=== PATIENT | female | born 1970 | race Caucasian/White ===

== ENCOUNTER 2021-02-16 17:45 | Emergency (ER) | payer BC, OTHER ==
[2021-02-16 18:38] LABS: Urine Blood Negative (Negative); Urine Glucose Negative (Negative); Urine Protein Negative (Negative); Urine Specific Gravity 1.025 (1.005-1.030)
[2021-02-16] MEDS ORDERED: IBUPROFEN 400 MG TAB ONE (18:55)
--- NOTE | 2021-02-16 19:35 | ER ---
Nurse's Notes [facility] Name: Apolonia Ramos Age: 50 yrs Sex: Female : 1970 Arrival Date: 02/16/2021 Time: 17:47 Bed 20 Private MD: Diagnosis: Pain in right hip Presentation: 02/16 17:53 Chief complaint: Patient states: she stumbled and fell a week ago at her home, and has ap3 had the hip pain since. Patient states she thought the pain would improve, but it has gotten worse and even has kept her up at night. Coronavirus screen: Vaccine status: Patient reports receiving the 2nd dose of the covid vaccine. At this time, the client does not indicate any symptoms associated with coronavirus-19. Ebola Screen: No symptoms or risks identified at this time. Initial Sepsis Screen: Does the patient meet any 2 criteria? No. Patient's initial sepsis screen is negative. Does the patient have a suspected source of infection? No. Patient's initial sepsis screen is negative. Risk Assessment: Do you want to hurt yourself or someone else? Patient reports no desire to harm self or others. Onset of symptoms was February 09, 2021. 17:53 Method Of Arrival: Ambulatory ap3 17:53 Acuity: BRYANNA 4 ap3 Triage Assessment: 17:57 General: Appears uncomfortable, Behavior is calm, cooperative, appropriate for age. ap3 Pain: Complains of pain in right hip Pain radiates to right leg Pain currently is 10 out of 10 on a pain scale. Quality of pain is described as sharp, Pain began one week ago on 02/09/2021 Alleviated by rest, Aggravated by exercise, increased activity, weight bearing. Neuro: Level of Consciousness is awake, alert, obeys commands, Oriented to person, place, time, situation, Appropriate for age Moves all extremities. Gait is unsteady, Speech is normal. Cardiovascular: Patient's skin is warm and dry. Respiratory: Airway is patent. Musculoskeletal: Reports pain in right hip. Injury Description: fall. 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 - Social history:: Smoking status: Patient reports the use of cigarette tobacco products, smokes one-half pack cigarettes per day. Screenin:56 Abuse screen: Denies threats or abuse. Nutritional screening: No deficits noted. ap3 Tuberculosis screening: No symptoms or risk factors identified. Assessment: 18:36 Musculoskeletal: Reports pain in right hip Rt hip pain since she got out of ex tc5 truck and fell. rates pain 10/10. Vital Signs: 17:56 BP 130 / 85; Pulse 67; Resp 17; Temp 98.8(TE); Pulse Ox 100% on R/A; Weight 72.57 kg; ap3 Height 6 ft. 2 in. (187.96 cm); Pain 10/10; 19:50 BP 124 / 80; Pulse 70; Resp 18; Pain 0/10; wg 17:56 Body Mass Index 20.54 (72.57 kg, 187.96 cm) ap3 ED Course: 17:47 Patient arrived in ED. mr 17:55 Triage completed. ap3 17:56 Arm band placed on right wrist. ap3 18:02 Wyatt Brito PA is PHCP. cp 18:02 Wyatt Wesley MD is Attending Physician. cp 18:16 Chayo Carbajal, PEARL is Primary Nurse. tc5 18:59 XRAY Hip RIGHT 2 view In Process Unspecified. EDMS 19:34 Castillo Vera MD is Referral Physician. cp Administered Medications: 18:35 Drug: Ibuprofen 800 mg Route: PO; tc5 19:40 Drug: Lidoderm Patch 5 % (700 mg/patch) 1 patches Route: Topical; Site: right thigh; em 20:09 Follow up: Response: No adverse reaction wg Outcome: 19:34 Discharge ordered by . cp 20:08 Discharged to home ambulatory. wg 20:08 Condition: stable 20:08 Discharge instructions given to Instructed on Demonstrated understanding of Prescriptions given X 2. 20:10 Patient left the ED. wg Signatures: Dispatcher [employer] BRYNNC Narcisa Issa mr Prince Girard, RN RN em Wyatt Brito PA PA cp Prokisch, Amanda, RN RN ap3 Shan Bhatti, RN wg Raven, Chayo, RN RN tc5
--- NOTE | 2021-02-16 19:35 | EDPHYS ---
Physician Documentation [facility] Name: Apolonia Ramos Age: 50 yrs Sex: Female : 1970 Arrival Date: 02/16/2021 Time: 17:47 Bed 20 Private MD: ED Physician Wyatt Wesley HPI: 02/16 18:15 This 50 yrs old Female presents to ER via Ambulatory with complaints of Hip cp Pain. 18:15 The patient or guardian reports an injury, pain. that occurred on a street or driveway, cp sustained from a fall, while walking, There is no obvious deformity, The patient is able to self ambulate. The patient is able to bear their full body weight. There is no radiation of the patient's discomfort. The complaints affect the right hip. Onset: The symptoms/episode began/occurred over 1 week ago. Associated signs and symptoms: Pertinent negatives: abdominal pain, chest pain, dysuria, fever, weakness, numbness. Severity of symptoms: in the emergency department the symptoms are unchanged, despite home interventions. 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 - Social history:: Smoking status: Patient reports the use of cigarette tobacco products, smokes one-half pack cigarettes per day. ROS: 18:20 MS/extremity: Positive for pain, tenderness, of the right hip, Negative for decreased cp range of motion, deformity, paresthesias, tenderness. 18:20 Eyes: Negative for injury, pain, redness, and discharge. cp 18:20 Constitutional: Negative for body aches, chills, fever, poor PO intake. 18:20 Cardiovascular: Negative for chest pain. 18:20 Respiratory: Negative for cough, shortness of breath, wheezing. 18:20 Abdomen/GI: Negative for abdominal pain, nausea, vomiting, and diarrhea. 18:20 Back: Negative for pain at rest, pain with movement. 18:20 Neuro: Negative for altered mental status, numbness, weakness. 18:20 All other systems are negative. Exam: 18:25 Constitutional: The patient appears in no acute distress, alert, awake, comfortable, cp non-toxic, well developed, well nourished. 18:25 Head/Face: Normocephalic, atraumatic. cp 18:25 Chest/axilla: Inspection: normal. 18:25 Cardiovascular: Rate: normal. 18:25 Respiratory: the patient does not display signs of respiratory distress, Respirations: normal, no use of accessory muscles, no retractions, labored breathing, is not present, Breath sounds: are clear throughout, no decreased breath sounds. 18:25 Abdomen/GI: Inspection: abdomen appears normal, Palpation: abdomen is soft and non-tender, in all quadrants. 18:25 Back: pain, is absent, ROM is normal, vertebral tenderness, is not appreciated. 18:25 Musculoskeletal/extremity: Extremities: grossly normal except: noted in the right hip: ecchymosis, tenderness, ROM: limited passive range of motion due to pain, in the right hip, Perfusion: the extremity is normally perfused throughout, the right leg Sensation intact. DVT Exam: No signs of deep vein thrombosis. 18:25 Skin: cellulitis, is not appreciated, no rash present. Vital Signs: 17:56 BP 130 / 85; Pulse 67; Resp 17; Temp 98.8(TE); Pulse Ox 100% on R/A; Weight 72.57 kg; ap3 Height 6 ft. 2 in. (187.96 cm); Pain 10/10; 19:50 BP 124 / 80; Pulse 70; Resp 18; Pain 0/10; wg 17:56 Body Mass Index 20.54 (72.57 kg, 187.96 cm) ap3 MDM: 18:02 Patient medically screened. andrew 19:33 Data reviewed: vital signs, nurses notes, radiologic studies, plain films. Test cp interpretation: by ED physician or midlevel provider: xrays of right hip negative for fracture. 02/16 18:38 Order name: Urine Dipstick-Ancillary; Complete Time: 18:41 EDMS 02/16 18:41 Interpretation: Reviewed. cp 02/16 18:09 Order name: XRAY Hip RIGHT 2 view cp 02/16 18:09 Order name: Urine Dipstick-Ancillary (obtain specimen) cp 02/16 18:09 Order name: Urine Test (obtain specimen) cp Administered Medications: 18:35 Drug: Ibuprofen 800 mg Route: PO; tc5 19:40 Drug: Lidoderm Patch 5 % (700 mg/patch) 1 patches Route: Topical; Site: right thigh; em 20:09 Follow up: Response: No adverse reaction Disposition: 02/17 13:04 Co-signature as Attending Physician, Wyatt Wesley MD I agree with the assessment and andrew plan of care. Disposition Summary: 02/16/21 19:34 Discharge Ordered Location: Home cp Problem: new cp Symptoms: have improved cp Condition: Stable cp Diagnosis - Pain in right hip cp Followup: cp - With: Castillo Vera MD - When: 1 week - Reason: Recheck today's complaints Discharge Instructions: - Discharge Summary Sheet cp - Hip Pain cp Forms: - Medication Reconciliation Form cp - Thank You Letter cp - Antibiotic Education cp - Prescription Opioid Use cp Prescriptions: - Lidoderm 5 % Topical adhesive patch,medicated - apply 1 patch by TOPICAL route once daily; 1 box; Refills: 0, Product Selection cp Permitted - Cyclobenzaprine 10 mg Oral Tablet - take 1 tablet by ORAL route every 8 hours As needed; 20 tablet; Refills: 0, cp Product Selection Permitted - Diclofenac Sodium 75 mg Oral tablet,delayed release (DR/EC) - take 1 tablet by ORAL route 2 times per day; 20 tablet; Refills: 0, Product cp Selection Permitted Signatures: Dispatcher [employer] Wyatt Plummer MD MD cha Munoz, Edgar RN RN Wyatt Worthy PA PA Sonia Smallwood RN RN ap3 Chayo Carbajal RN RN tc5 Shan Bhatti RN wg
--- NOTE | 2021-02-16 19:51 | RAD REPORT ---
EXAM DESCRIPTION: RAD - Hip Right 2 View - 02/16/2021 7:00 pm CLINICAL HISTORY: PAIN COMPARISON: No comparisons FINDINGS: No acute fracture, dislocation or AVN pattern observed. Mild osteoarthritis is present.
[2021-02-16] MEDS ORDERED: LIDOCAINE 4% PATCH ONE (20:04)
[2021-02-16 20:19] VITALS: TEMP 98.8; O2SAT 100
[2021-02-16 20:21] VITALS: BP 124/80
== END 2021-02-16 20:10 | disposition home or self-care (01) ==
LOC: ER 17:45
DX: M25.551 Pain in right hip (principal); F17.210 Nicotine dependence, cigarettes, uncomplicated; Z88.0 Allergy status to penicillin; Z88.1 Allergy status to other antibiotic agents
CPT/HCPCS: 81003; 99283

== ENCOUNTER 2022-01-12 10:36 | Emergency (ER) | payer BC, OTHER ==
--- NOTE | 2022-01-12 11:53 | ER ---
Nurse's Notes [facility] Name: Apolonia Ramos Age: 51 yrs Sex: Female : 1970 Arrival Date: 01/12/2022 Time: 10:38 Bed 12 Private MD: Diagnosis: Other otitis externa, right ear Presentation: 01/12 11:38 Chief complaint: Patient states: I think I have swimmers ear. My right ear has been bm7 hurting so bad that it kept me up all night. Coronavirus screen: At this time, the client does not indicate any symptoms associated with coronavirus-19. Ebola Screen: No symptoms or risks identified at this time. Initial Sepsis Screen: Does the patient meet any 2 criteria? No. Patient's initial sepsis screen is negative. Does the patient have a suspected source of infection? No. Patient's initial sepsis screen is negative. Risk Assessment: Do you want to hurt yourself or someone else? Patient reports no desire to harm self or others. Onset of symptoms was January 11, 2022. 11:38 Method Of Arrival: Ambulatory 7 11:38 Acuity: BRYANNA 5 bm7 Triage Assessment: 11:40 General: Appears in no apparent distress. comfortable, Behavior is calm, cooperative, bm7 appropriate for age. Pain: Complains of pain in right ear Pain does not radiate. EENT: Ear canal clear on right ear Reports pain in right ear. Neuro: No deficits noted. Cardiovascular: No deficits noted. Respiratory: No deficits noted. GI: No deficits noted. No signs and/or symptoms were reported involving the gastrointestinal system. : No deficits noted. No signs and/or symptoms were reported regarding the genitourinary system. Derm: No deficits noted. No signs and/or symptoms reported regarding the dermatologic system. Musculoskeletal: No deficits noted. No signs and/or symptoms reported regarding the musculoskeletal system. 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 - Social history:: Smoking status: Patient reports the use of cigarette tobacco products, smokes one-half pack cigarettes per day. Screenin:03 Abuse screen: Denies threats or abuse. Denies injuries from another. Nutritional ss screening: No deficits noted. Tuberculosis screening: Never had TB. Fall Risk None identified. Assessment: 12:03 General: Appears in no apparent distress. comfortable, Behavior is calm, cooperative, ss Denies fever. Pain: Complains of pain in right ear canal and right ear Pain currently is 10 out of 10 on a pain scale. Quality of pain is described as tender, Is continuous. Neuro: Level of Consciousness is awake, alert, obeys commands, Oriented to person, place, time, situation. Cardiovascular: Capillary refill < 3 seconds is brisk in bilateral fingers. Respiratory: Airway is patent Respiratory effort is even, unlabored, Respiratory pattern is regular, symmetrical. Derm: Skin is intact, is healthy with good turgor, Skin is dry, Skin is pink, warm \T\ dry. normal. Musculoskeletal: Circulation, motion, and sensation intact. Range of motion: intact in all extremities. Vital Signs: 11:38 BP 107 / 68; Pulse 62; Resp 16; Temp 97.0(TE); Pulse Ox 100% on R/A; Weight 63.5 kg bm7 (R); Height 5 ft. 2 in. (157.48 cm); Pain 10/10; 11:38 Body Mass Index 25.61 (63.50 kg, 157.48 cm) bm7 ED Course: 10:38 Patient arrived in ED. mr 11:40 Triage completed. bm7 11:40 Arm band placed on right wrist. bm7 11:43 Amador Lugo is [facility]. jl9 11:43 Wyatt Wesley MD is Attending Physician. jl9 12:03 Teressa Perez, PEARL is Primary Nurse. ss 12:03 Patient has correct armband on for positive identification. Bed in low position. ss 12:03 No provider procedures requiring assistance completed. Patient did not have IV access ss during this emergency room visit. Administered Medications: No medications were administered Medication: 12:03 VIS not applicable for this client. ss Outcome: 11:53 Discharge ordered by MD. ojeda 12:03 Discharged to home ambulatory. 12:03 Condition: good 12:03 Discharge instructions given to patient, Instructed on discharge instructions, follow up and referral plans. medication usage, Demonstrated understanding of instructions, follow-up care, medications, Prescriptions given X 1. 12:04 Patient left the ED. Signatures: Narcisa Issa Shelby, RN RN Brianda Mendez RN RN bm7 Linares, John jl9
--- NOTE | 2022-01-12 11:53 | EDPHYS ---
Physician Documentation [facility] Name: Apolonia Ramos Age: 51 yrs Sex: Female : 1970 Arrival Date: 01/12/2022 Time: 10:38 Bed 12 Private MD: Wyatt Monaco HPI: 01/12 11:50 This 51 yrs old Female presents to ER via Ambulatory with complaints of right jl9 ear pain [place] the [place] 2 [place]. . 11:50 The patient presents with pain, tenderness. The complaints affect the right ear. Onset: jl9 The symptoms/episode began/occurred yesterday. Modifying factors: The symptoms are alleviated by nothing, the symptoms are aggravated by nothing. Associated signs and symptoms: The patient has no apparent associated signs or symptoms. Severity of symptoms: Pain is currently a 3 / 10. 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 - Social history:: Smoking status: Patient reports the use of cigarette tobacco products, smokes one-half pack cigarettes per day. ROS: 11:51 Constitutional: Negative for fever, chills, and weight loss, Eyes: Negative for injury, jl9 pain, redness, and discharge. 11:51 Neck: Negative for injury, pain, and swelling, Cardiovascular: Negative for chest pain, palpitations, and edema, Respiratory: Negative for shortness of breath, cough, wheezing, and pleuritic chest pain, Abdomen/GI: Negative for abdominal pain, nausea, vomiting, diarrhea, and constipation, Back: Negative for injury and pain, MS/Extremity: Negative for injury and deformity, Skin: Negative for injury, rash, and discoloration, Neuro: Negative for headache, weakness, numbness, tingling, and seizure, Psych: Negative for depression, anxiety, suicide ideation, homicidal ideation, and hallucinations, Allergy/Immunology: Negative for hives, rash, and allergies, Endocrine: Negative for neck swelling, polydipsia, polyuria, polyphagia, and marked weight changes, Hematologic/Lymphatic: Negative for swollen nodes, abnormal bleeding, and unusual bruising. 11:51 ENT: Positive for ear pain. Exam: 11:51 Constitutional: This is a well developed, well nourished patient who is awake, alert, jl9 and in no acute distress. Head/Face: Normocephalic, atraumatic. Eyes: Pupils equal round and reactive to light, extra-ocular motions intact. Lids and lashes normal. Conjunctiva and sclera are non-icteric and not injected. Cornea within normal limits. Periorbital areas with no swelling, redness, or edema. 11:51 Neck: Trachea midline, no thyromegaly or masses palpated, and no cervical lymphadenopathy. Supple, full range of motion without nuchal rigidity, or vertebral point tenderness. No Meningismus. Chest/axilla: Normal chest wall appearance and motion. Nontender with no deformity. No lesions are appreciated. Cardiovascular: Regular rate and rhythm with a normal S1 and S2. No gallops, murmurs, or rubs. Normal PMI, no JVD. No pulse deficits. Respiratory: Lungs have equal breath sounds bilaterally, clear to auscultation and percussion. No rales, rhonchi or wheezes noted. No increased work of breathing, no retractions or nasal flaring. Abdomen/GI: Soft, non-tender, with normal bowel sounds. No distension or tympany. No guarding or rebound. No evidence of tenderness throughout. Back: No spinal tenderness. No costovertebral tenderness. Full range of motion. Skin: Warm, dry with normal turgor. Normal color with no rashes, no lesions, and no evidence of cellulitis. MS/ Extremity: Pulses equal, no cyanosis. Neurovascular intact. Full, normal range of motion. Neuro: Awake and alert, GCS 15, oriented to person, place, time, and situation. Cranial nerves II-XII grossly intact. Motor strength 5/5 in all extremities. Sensory grossly intact. Cerebellar exam normal. Normal gait. Psych: Awake, alert, with orientation to person, place and time. Behavior, mood, and affect are within normal limits. 11:51 ENT: External ear(s): erythema, of the right ear canal, pain with movement, of the right ear canal, Ear canal(s): erythema, of the right canal, purulent discharge, in the right canal, TM's: are normal. Vital Signs: 11:38 BP 107 / 68; Pulse 62; Resp 16; Temp 97.0(TE); Pulse Ox 100% on R/A; Weight 63.5 kg 7 (R); Height 5 ft. 2 in. (157.48 cm); Pain 10/10; 11:38 Body Mass Index 25.61 (63.50 kg, 157.48 cm) 7 MDM: 11:43 Patient medically screened. jl9 11:52 Data reviewed: vital signs, nurses notes. Counseling: I had a detailed discussion with jl9 the patient and/or guardian regarding: the historical points, exam findings, and any diagnostic results supporting the discharge/admit diagnosis, the need for outpatient follow up, to return to the emergency department if symptoms worsen or persist or if there are any questions or concerns that arise at home. Administered Medications: No medications were administered Disposition Summary: 01/12/22 11:53 Discharge Ordered Location: Home jl9 Condition: Stable jl9 Diagnosis - Other otitis externa, right ear jl9 Followup: jl9 - With: Private Physician - When: 1 - 2 days - Reason: Recheck today's complaints, Continuance of care, Re-evaluation by your physician Discharge Instructions: - Discharge Summary Sheet jl9 - Otitis Externa, [id number] jl9 Forms: - Medication Reconciliation Form jl9 - Thank You Letter jl9 - Antibiotic Education jl9 - Prescription Opioid Use jl9 Prescriptions: - Ciprodex 0.3-0.1 % Otic Drops, Suspension - instill 4 drops by OTIC route every 12 hours for 7 days , for ears ONLY; 1 9 Container; Refills: 0, Product Selection Permitted Signatures: Brianda Mendez RN RN bm7 Amador Lugo jl9
[2022-01-12 12:54] VITALS: BP 107/68; TEMP 97; O2SAT 100
== END 2022-01-12 12:04 | disposition home or self-care (01) ==
LOC: ER 10:36
DX: H60.8X1 Other otitis externa, right ear (principal); E11.9 Type 2 diabetes mellitus without complications; F17.210 Nicotine dependence, cigarettes, uncomplicated; Z88.0 Allergy status to penicillin; Z88.1 Allergy status to other antibiotic agents; Z88.8 Allergy status to other drugs, medicaments and biological substances
CPT/HCPCS: 99282

== ENCOUNTER 2022-09-26 19:29 | Emergency (ER) | payer BC, OTHER ==
[2022-09-26] MEDS ORDERED: HYDROCODONE/APAP 10/325 TAB ONE (20:01)
--- NOTE | 2022-09-26 21:28 | RAD REPORT ---
EXAM DESCRIPTION: [facility]26/2022 8:52 pm CLINICAL HISTORY: Right leg pain COMPARISON: None. FINDINGS: Right common femoral, superficial femoral, greater saphenous, popliteal and right posterio r tibial veins are compressible and demonstrate augmentation. Doppler demonstrates good flow. Grayscale, color and spectral analysis performed on all vessels IMPRESSION: No evidence of deep venous thrombosis involving the right lower extremity.
--- NOTE | 2022-09-26 21:40 | EDPHYS ---
Physician Documentation [facility] Name: Apolonia Ramos Age: 52 yrs Sex: Female : 1970 Arrival Date: 09/26/2022 Time: 19:29 Bed 5 Private MD: ED Physician Don Melendrez HPI: 09/26 23:18 This 52 yrs old Female presents to ER via Ambulatory with complaints of Leg Pain. kb 23:19 the patient presents with a swollen area of the dorsum of right foot and anterior kb aspect of right ankle. Description: swollen. The patient has not recently seen a physician. 23:19 Onset: The symptoms/episode began/occurred yesterday. Possible cause(s): unknown. kb Associated signs and symptoms: Pertinent positives: erythema, swelling. Modifying factors: the symptoms are alleviated by nothing, the symptoms are aggravated by nothing. Severity of symptoms: At their worst the symptoms were mild, in the emergency department the symptoms are unchanged. The patient has experienced a previous episode. Pt reports she had a blood clot one month ago that turned into an infection. States she has not had to take blood thinners, just antibiotics. Reports the pain and slight swelling has come back . 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 - Social history:: Smoking status: Patient reports the use of cigarette tobacco products, smokes one-half pack cigarettes per day. ROS: 23:18 Constitutional: Negative for fever, chills, and weight loss. kb 23:18 MS/extremity: Positive for pain, swelling, of the anterior aspect of right ankle and dorsum of right foot. 23:18 All other systems are negative. Exam: 23:18 Constitutional: This is a well developed, well nourished patient who is awake, alert, kb and in no acute distress. Head/Face: Normocephalic, atraumatic. ENT: Moist Mucous membranes Cardiovascular: Regular rate and rhythm with a normal S1 and S2. No gallops, murmurs, or rubs. No pulse deficits. Respiratory: Respirations even and unlabored. No increased work of breathing. Talking in full sentences MS/ Extremity: Pulses equal, no cyanosis. Neurovascular intact. Full, normal range of motion. Neuro: Awake and alert, GCS 15, oriented to person, place, time, and situation. Moves all extremities. Normal gait. 23:18 Skin: cellulitis, that is minimal, on the dorsum of right foot and anterior aspect of right ankle. Vital Signs: 19:43 BP 131 / 73; Pulse 73; Resp 16; Temp 100.5(O); Pulse Ox 100% on R/A; Weight 63.5 kg; vg1 Height 5 ft. 3 in. ; Pain 10/10; 19:57 BP 121 / 75; kl 20:44 BP 112 / 69; Pulse 66; Resp 16; Pulse Ox 100% on R/A; vc1 21:44 BP 123 / 79; Pulse 82; Resp 18; Pulse Ox 99% on R/A; kl 19:43 Body Mass Index 24.80 (63.50 kg, 160.02 cm) vg1 19:43 Pain Scale: Adult vg1 MDM: 19:35 Patient medically screened. kb 23:18 Differential diagnosis: cellulitis, abscess, dvt. Data reviewed: vital signs, nurses kb notes. Counseling: I had a detailed discussion with the patient and/or guardian regarding: the historical points, exam findings, and any diagnostic results supporting the discharge/admit diagnosis, radiology results, the need for outpatient follow up, a family practitioner, to return to the emergency department if symptoms worsen or persist or if there are any questions or concerns that arise at home. 09/26 19:45 Order name: US Extremity Venous Unilateral Ltd; Complete Time: 21:37 kb Administered Medications: 19:55 Drug: [place]mond PO 10 mg-325 mg 1 tabs Route: PO; kl 21:34 Follow up: Response: No adverse reaction; Marked relief of symptoms kl Disposition Summary: 09/26/22 21:39 Discharge Ordered Location: Home kb Condition: Stable kb Diagnosis - Cellulitis of right lower limb kb Followup: kb - With: Emergency Department - When: As needed - Reason: Worsening of condition Followup: kb - With: Private Physician - When: 2 - 3 days - Reason: Recheck today's complaints, Continuance of care, Re-evaluation by your physician Discharge Instructions: - Discharge Summary Sheet kb - Cellulitis, Adult, [id number] kb Forms: - Medication Reconciliation Form kb - Thank You Letter kb - Antibiotic Education kb - Prescription Opioid Use kb Prescriptions: - Bactrim DS 800-160 mg Oral Tablet - take 1 tablet by ORAL route every 12 hours for 10 days; 20 tablet; Refills: 0, kb Product Selection Permitted Signatures: Dispatcher [employer] EDJennifer Valderrama, TOOL TURRET LATHE SET UP OPERATOR-C POLLY-Nichelle Packer, RN RN kl Sbarina Cooper RN RN vg1
--- NOTE | 2022-09-26 21:40 | ER ---
Nurse's Notes [facility] Name: Apolonia Ramos Age: 52 yrs Sex: Female : 1970 Arrival Date: 09/26/2022 Time: 19:29 Bed 5 Private MD: Diagnosis: Cellulitis of right lower limb Presentation: 09/26 19:43 Chief complaint: Patient states: had a blood clot in Right leg x 1 month ago, states is vg1 having the same feeling as a month ago. Pain and swelling to Right leg and foot. Denies blood thinners. Coronavirus screen: Vaccine status: Patient reports receiving the 2nd dose of the covid vaccine. Client denies travel out of the [place] in the last 14 days. Ebola Screen: Patient negative for fever greater than or equal to 101.5 degrees Fahrenheit, and additional compatible Ebola Virus Disease symptoms Patient denies exposure to infectious person. Patient denies travel to an Ebola-affected area in the 21 days before illness onset. Initial Sepsis Screen: Does the patient meet any 2 criteria? No. Patient's initial sepsis screen is negative. Does the patient have a suspected source of infection? No. Patient's initial sepsis screen is negative. Risk Assessment: Do you want to hurt yourself or someone else? Patient reports no desire to harm self or others. Onset of symptoms was September 25, 2022. 19:43 Method Of Arrival: Ambulatory vg1 19:43 Acuity: BRYANNA 3 vg1 Triage Assessment: 19:48 General: Appears in no apparent distress. uncomfortable, Behavior is calm, cooperative. vg1 Pain: Complains of pain in right leg Pain currently is 10 out of 10 on a pain scale. Musculoskeletal: Swelling present in right leg. 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 - Social history:: Smoking status: Patient reports the use of cigarette tobacco products, smokes one-half pack cigarettes per day. Screenin:57 [facility] ED Fall Risk Assessment (Adult) History of falling in the last 3 months, kl including since admission No falls in past 3 months (0 pts) Confusion or Disorientation No (0 pts) Intoxicated or Sedated No (0 pts) Impaired Gait Yes (1 pt) Mobility Assist Device Used No (0 pt) Altered Elimination No (0 pt) Score/Fall Risk Level 0 - 2 = Low Risk Oriented to surroundings, Maintained a safe environment. Abuse screen: Denies threats or abuse. Nutritional screening: No deficits noted. Tuberculosis screening: No symptoms or risk factors identified. Assessment: 19:55 General: Appears uncomfortable, Behavior is cooperative. Pain: Complains of pain in kl right leg Pain currently is 10 out of 10 on a pain scale. Quality of pain is described as aching, pressure, Pain began gradually, 1 day ago. Is continuous. Neuro: No deficits noted. Cardiovascular: Denies chest pain, shortness of breath. Respiratory: No deficits noted. Airway is patent Trachea midline Respiratory effort is even, unlabored, Respiratory pattern is regular, symmetrical. GI: No deficits noted. No signs and/or symptoms were reported involving the gastrointestinal system. : No deficits noted. No signs and/or symptoms were reported regarding the genitourinary system. EENT: No deficits noted. No signs and/or symptoms were reported regarding the EENT system. Musculoskeletal: Circulation, motion, and sensation intact. Capillary refill < 3 seconds, Swelling present in right leg. 21:35 Reassessment: Patient appears in no apparent distress at this time. Patient and/or kl family updated on plan of care and expected duration. Pain level reassessed. Patient is alert, oriented x 3, equal unlabored respirations, skin warm/dry/pink. Patient states feeling better. Patient states symptoms have improved. Vital Signs: 19:43 BP 131 / 73; Pulse 73; Resp 16; Temp 100.5(O); Pulse Ox 100% on R/A; Weight 63.5 kg; vg1 Height 5 ft. 3 in. ; Pain 10/10; 19:57 BP 121 / 75; kl 20:44 BP 112 / 69; Pulse 66; Resp 16; Pulse Ox 100% on R/A; vc1 21:44 BP 123 / 79; Pulse 82; Resp 18; Pulse Ox 99% on R/A; kl 19:43 Body Mass Index 24.80 (63.50 kg, 160.02 cm) vg1 19:43 Pain Scale: Adult vg1 ED Course: 19:35 Patient arrived in ED. kj1 19:35 [facility]C [facility] kb 19:35 Don Melendrez MD is Attending Physician. kb 19:48 Triage completed. vg1 19:48 Arm band placed on. vg1 19:57 Patient has correct armband on for positive identification. Bed in low position. Call kl light in reach. Side rails up X2. 19:57 Pulse ox on. NIBP on. kl 19:57 No provider procedures requiring assistance completed. kl 20:53 US Extremity Venous Unilateral Ltd In Process Unspecified. EDAR 21:43 Mimi Lemus, RN is Primary Nurse. vc1 21:45 Patient did not have IV access during this emergency room visit. kl Administered Medications: 19:55 Drug: [place] PO 10 mg-325 mg 1 tabs Route: PO; kl 21:34 Follow up: Response: No adverse reaction; Marked relief of symptoms Medication: 19:56 VIS not applicable for this client. Outcome: 21:39 Discharge ordered by . kb 21:44 Discharged to home ambulatory. kl 21:44 Condition: improved 21:44 Discharge instructions given to patient, family, Instructed on discharge instructions, follow up and referral plans. medication usage, Demonstrated understanding of instructions, follow-up care, medications, Prescriptions given X 1. 21:45 Patient left the ED. Signatures: Dispatcher [employer] EDAR Jennifer Beatty FNP-C FNP-Ckb Lewis, Kimberly RN Glenis Yang [facility] Sabrina Cooper RN RN vg Mimi Lemus, RN PEARL vc1
[2022-09-26 21:56] VITALS: TEMP 100.5
[2022-09-26 22:02] VITALS: BP 123/79; O2SAT 99
== END 2022-09-26 21:45 | disposition home or self-care (01) ==
LOC: ER 19:29
DX: L03.115 Cellulitis of right lower limb (principal); E11.9 Type 2 diabetes mellitus without complications; F17.210 Nicotine dependence, cigarettes, uncomplicated; Z88.0 Allergy status to penicillin; Z88.3 Allergy status to other anti-infective agents; Z88.8 Allergy status to other drugs, medicaments and biological substances
CPT/HCPCS: 93971

== ENCOUNTER → 2023-04-24 | Emergency (ER) | payer BC ==
[~2023-04-24] MED LIST: FLUORESCEIN SODIUM 1 MG/WRAP ONE; TETRACAINE HCL 0.5% 4ML OPTH ONE; acetaZOLAMIDE 250 MG TAB ONE
--- NOTE | 2023-04-24 08:27 | EDPHYS ---
Physician Documentation [facility] Name: Apolonia Ramos Age: 52 yrs Sex: Female : 1970 Arrival Date: 04/24/2023 Time: 07:20 Bed 6 Private MD: ED Physician Joon Vaca HPI: 04/24 07:44 This 52 yrs old Female presents to ER via Ambulatory with complaints of ec2 Drainage From Eye. 07:44 Patient arrives today for evaluation of right eye drainage. States that she has been ec2 having some right eye pressure as well as right nose drainage as well as right eye drainage. States that the eye is red and inflamed. Reports history of glaucoma, denies any eye trauma. Reports no cough and cold symptoms, no fevers or chills. Patient reports that she has had complete vision loss of the right eye.. Historical: - Allergies: 07:40 PENICILLINS; ll1 07:40 Phenergan; ll1 07:40 Tetracycline; ll1 - PMHx: 07:40 diabetes mellitus; ll1 - PSHx: 07:40 multiple leg and feet sx; ll1 - Immunization history:: Adult Immunizations up to date. - Social history:: Smoking status: Patient reports the use of cigarette tobacco products, 1/3 PPD. ROS: 07:44 Constitutional: as per hpi ec2 Exam: 07:44 Constitutional: GEN: NAD Head: atraumatic Eyes: EOMI, good range of motion in the ec2 bilateral eyes, no pain with range of motion, erythema noted throughout the right eye, significant copious clear drainage noted as well, no hyphema or hypopyon noted, diminished fibular response to direct and consensual light.. No pain with light reflex. Ears: External ears are normal. CV: regular rate LUNGS: no respiratory distress ABD: non-distended SKIN: no evidence of rashes MSK: no evidence of trauma NEURO: moves all extremities equally Vital Signs: 07:40 BP 108 / 82; Pulse 74; Resp 17; Temp 98.3; Pulse Ox 98% on R/A; Weight 58.97 kg; Height ll1 5 ft. 2 in. ; Pain 10/10; 07:40 Body Mass Index 23.78 (58.97 kg, 157.48 cm) ll1 07:40 Pain Scale: Adult ll1 Visual Acuity: 07:52 Left Eye Visual acuity 20/20, Pupil size 3 mm, Normal, React To Light, Reactive To kc6 Accomodation; Right Eye Visual acuity 20/200, Pupil size 3 mm, Normal, React To Light, Reactive To Accomodation; Both Eyes Visual acuity 20/40; Without Lenses; MDM: 07:36 Patient medically screened. ec2 07:44 Data reviewed: vital signs. ED course: Patient arrives today for evaluation of right ec2 eye drainage and discomfort along with visual loss. Examination remarkable for eye findings noted above. Will obtain eye pressures, fluorescein stain and reassess the patient. Suspect acute angle-closure glaucoma, uveitis, conjunctivitis.. 08:05 ED course: Patient acuity 20/200 on the right eye, 20/20 in the left eye, 20/40 ec2 bilaterally. Right eye pressure with initial pressure reading at 28 and subsequent reading at 34.. 08:24 ED course: I discussed case with Dr. Jackman, ophthalmology, who is available to see the ec2 patient in his office right now, he stated to defer acute management right now as he wanted to get a better examination in his office. Updated the patient and she is agreeable and will be directly transferred via POV with her family member.. 04/24 07:44 Order name: Eye Tray; Complete Time: :52 ec2 04/24 07:44 Order name: Fluoresene Opth strip; Complete Time: 07:52 ec2 04/24 07:44 Order name: Visual Acuity; Complete Time: 07:52 ec2 Administered Medications: 07:52 Drug: Tetracaine Ophthalmic Drops 0.5 % 1 drops Ophthalmic once {Note: by Dr. Vaca.} kc6 Route: Ophthalmic; Site: right eye; 08:24 Not Given (Physician Discretion): % 1 g/kg 500 ml IV at calculated rate once; kc6 Administer over 30 to 60 minutes 08:25 Not Given (Physician Discretion): timoloL Drops 0.5 % 1 drops Topical once kc6 08:25 Not Given (Physician Discretion): [id number] mg PO once kc6 Disposition Summary: 04/24/23 08:27 Discharge Ordered Condition: Serious ec2 Diagnosis - Unspecified open-angle glaucoma, stage unspecified ec2 Followup: ec2 - With: Abrahan Jackman MD - When: Today - Reason: Immediately upon leaving the Emergency Department Discharge Instructions: - Discharge Summary Sheet ec2 - Glaucoma, [id number] ec2 Forms: - Medication Reconciliation Form ec2 - Thank You Letter ec2 - Antibiotic Education ec2 - Prescription Opioid Use ec2 - Patient Portal Instructions ec2 - Leadership Thank You Letter ec2 Signatures: Duke Patel RN RN ll1 Elina Dior RN RN kc6 Joon Vaca MD MD ec2 Corrections: (The following items were deleted from the chart) 08:03 07:44 Patient arrives today for evaluation of right eye drainage. States that she has ec2 been having some right eye pressure as well as right nose drainage as well as right eye drainage. States that the eye is red and inflamed. Reports history of glaucoma, denies any eye trauma. Reports no cough and cold symptoms, no fevers or chills.. ec2 08:04 07:44 Constitutional: GEN: NAD Head: atraumatic Eyes: EOMI, good range of motion in the ec2 bilateral eyes, no pain with range of motion, erythema noted throughout the right eye, significant copious clear drainage noted as well, no hyphema or hypopyon noted, intact pupillary response with direct and consensual light. No pain with light reflex. Ears: External ears are normal. CV: regular rate LUNGS: no respiratory distress ABD: non-distended SKIN: no evidence of rashes MSK: no evidence of trauma NEURO: moves all extremities equally ec2 08:05 07:44 ED course: Patient arrives today for evaluation of right eye drainage and ec2 discomfort. Examination remarkable for eye findings noted above. Will obtain eye pressures, fluorescein stain and reassess the patient. Suspect conjunctivitis, versus URI, low suspicion for glaucoma.. ec2
--- NOTE | 2023-04-24 08:27 | ER ---
Nurse's Notes [facility] Name: Apolonia Ramos Age: 52 yrs Sex: Female : 1970 Arrival Date: 04/24/2023 Time: 07:20 Bed 6 Private MD: Diagnosis: Unspecified open-angle glaucoma, stage unspecified Presentation: 04/24 07:40 Chief complaint: Patient states: R sided WEBER, R eye redness/tearing for 3 days. No ll1 fever. Coronavirus screen: Vaccine status: Patient reports receiving the 2nd dose of the covid vaccine. Client denies travel out of the [place] in the last 14 days. At this time, the client does not indicate any symptoms associated with coronavirus-19. Ebola Screen: Patient denies travel to an Ebola-affected area in the 21 days before illness onset. Initial Sepsis Screen: Does the patient meet any 2 criteria? No. Patient's initial sepsis screen is negative. Does the patient have a suspected source of infection? No. Patient's initial sepsis screen is negative. Risk Assessment: Do you want to hurt yourself or someone else? Patient reports no desire to harm self or others. Onset of symptoms was April 22, 2023. 07:40 Method Of Arrival: Ambulatory ll1 07:40 Acuity: BRYANNA 3 ll1 Triage Assessment: 07:42 General: Appears uncomfortable, Behavior is calm, cooperative, appropriate for age. ll1 Pain: Complains of pain in R WEBER Pain currently is 10 out of 10 on a pain scale. Quality of pain is described as aching, throbbing. EENT: Eyes are tearing on outer aspect of conjuctiva of right eye, iris of right eye and inner aspect of conjuctiva of right eye redness/pain. Reports pain in right eye. Neuro: Reports headache. Historical: - Allergies: 07:40 PENICILLINS; ll1 07:40 Phenergan; ll1 07:40 Tetracycline; ll1 - PMHx: 07:40 diabetes mellitus; ll1 - PSHx: 07:40 multiple leg and feet sx; ll1 - Immunization history:: Adult Immunizations up to date. - Social history:: Smoking status: Patient reports the use of cigarette tobacco products, 1/3 PPD. Screenin:53 [facility] ED Fall Risk Assessment (Adult) History of falling in the last 3 months, kc6 including since admission No falls in past 3 months (0 pts) Confusion or Disorientation No (0 pts) Intoxicated or Sedated No (0 pts) Impaired Gait No (0 pts) Mobility Assist Device Used No (0 pt) Altered Elimination No (0 pt) Score/Fall Risk Level 0 - 2 = Low Risk. Abuse screen: Denies threats or abuse. Denies injuries from another. Nutritional screening: No deficits noted. Tuberculosis screening: No symptoms or risk factors identified. Assessment: 07:53 General: Appears in no apparent distress. comfortable, Behavior is calm, cooperative, kc6 appropriate for age. Pain: Complains of pain in right eye. Neuro: Level of Consciousness is awake, alert, obeys commands, Oriented to person, place, time, situation, Appropriate for age. Cardiovascular: Capillary refill < 3 seconds. Respiratory: Airway is patent Trachea midline Respiratory effort is even, unlabored, Respiratory pattern is regular, symmetrical. GI: No signs and/or symptoms were reported involving the gastrointestinal system. : No signs and/or symptoms were reported regarding the genitourinary system. EENT: Eyes are reddened and appears to be swollen on the right side. Derm: No signs and/or symptoms reported regarding the dermatologic system. Skin is intact, is healthy with good turgor, Skin is pink, warm \T\ dry. Musculoskeletal: No signs and/or symptoms reported regarding the musculoskeletal system. Circulation, motion, and sensation intact. Capillary refill < 3 seconds, Range of motion: intact in all extremities. Vital Signs: 07:40 BP 108 / 82; Pulse 74; Resp 17; Temp 98.3; Pulse Ox 98% on R/A; Weight 58.97 kg; Height ll1 5 ft. 2 in. ; Pain 10/10; 07:40 Body Mass Index 23.78 (58.97 kg, 157.48 cm) ll1 07:40 Pain Scale: Adult ll1 Visual Acuity: 07:52 Left Eye Visual acuity 20/20, Pupil size 3 mm, Normal, React To Light, Reactive To kc6 Accomodation; Right Eye Visual acuity 20/200, Pupil size 3 mm, Normal, React To Light, Reactive To Accomodation; Both Eyes Visual acuity 20/40; Without Lenses; ED Course: 07:35 Patient arrived in ED. im 07:36 Vaca, Joon, MD is Attending Physician. ec2 07:36 Elina Dior RN is Primary Nurse. kc6 07:40 Arm band placed on Patient placed in an exam room, on a stretcher. ll1 07:42 Triage completed. ll1 07:53 Patient has correct armband on for positive identification. Bed in low position. Call kc6 light in reach. Side rails up X 1. Adult w/ patient. Client placed on continuous cardiac and pulse oximetry monitoring. NIBP monitoring applied. 07:53 Patient maintains SpO2 saturation greater than 95% on room air. kc6 08:26 Abrahan Jackman MD is Referral Physician. ec2 08:31 No provider procedures requiring assistance completed. Patient did not have IV access kc6 during this emergency room visit. Administered Medications: 07:52 Drug: Tetracaine Ophthalmic Drops 0.5 % 1 drops Ophthalmic once {Note: by Dr. Vaca.} kc6 Route: Ophthalmic; Site: right eye; 08:24 Not Given (Physician Discretion): [id number]% 1 g/kg 500 ml IV at calculated rate once; kc6 Administer over 30 to 60 minutes 08:25 Not Given (Physician Discretion): timoloL Drops 0.5 % 1 drops Topical once kc6 08:25 Not Given (Physician Discretion): [id number] mg PO once kc6 Medication: 08:32 VIS not applicable for this client. kc6 Outcome: 08:27 Discharge ordered by . ec2 08:31 Discharged to home ambulatory, with family, kc6 08:31 Condition: good 08:31 Discharge instructions given to patient, Instructed on discharge instructions, follow up and referral plans. Demonstrated understanding of instructions, follow-up care, 08:32 Patient left the ED. kc6 Signatures: Duke Patel RN RN ll1 Elina Dior RN RN kc6 Chio Camilo Joon Vaca MD MD ec2
[2023-04-24 09:41] VITALS: BP 108/82; TEMP 98.3; O2SAT 98
== END ==
LOC: ER 07:20
DX: H40.10X0 Unspecified open-angle glaucoma, stage unspecified (principal)
CPT/HCPCS: 99284